=== PATIENT | male | born 1935 | race Caucasian/White ===

== ENCOUNTER 2020-09-07 13:08 | Outpatient (RCR) | payer MEDICARE, SELFPAY | END 2020-09-07 23:59 | LOC: IMMUN 13:08 | PROVIDERS: Visit Provider Family Medicine | DX: Z23 Encounter for immunization (principal) | CPT/HCPCS: 0011A; 0012A; 91301 ==

== ENCOUNTER → 2020-10-17 16:09 | Outpatient (CLI) | payer MEDICARE, SELFPAY ==
[2020-10-17 17:59] LABS: Absolute Lymphocyte Count 1.53 X10^3/uL (0.83-4.51); Absolute Neutrophil Count 5.7 X10^3/uL (2.0-7.7); Basophil# 0.08 X10^3/uL; Basophil% 0.9 % (0-1); Eosinophil# 0.61 X10^3/uL; Eosinophils% 6.9 % (0-5); Hematocrit 41.6 % (40-54); Hemoglobin 13.1 g/dL (13.0-16.5); Lymphocyte # 1.53 X10^3/ul (4.0); Lymphocyte % 17.3 % (19-41); Mean Corp Hgb Conc 31.5 g/dL (32-36); Mean Corpuscular Hgb 29.4 pg (27.0-32.0); Mean Corpuscular Volume 93.5 fL (80-94); Mean Platelet Vol. 11.1 fl (6.2-12.0); Monocyte# 0.87 X10^3/uL; Monocyte% 9.8 % (0-10); NRBC Flagged by Analyzer 0 % (0-5); Neutrophil # 5.72 X10^3/uL (2.7-7.7); Neutrophil % 64.6 % (47-70); Platelet Count 184 K/mm3 (150-450); RBC Distribution Width CV 13.9 % (11.6-14.6); RBC Distribution Width SD 47.3 fl (35.1-43.9); Red Blood Count 4.45 M/mm3 (4.6-6.2); White Blood Count 8.9 K/mm3 (4.4-11.0)
[2020-10-17 18:21] LABS: Erythrocyte Sedimentation Rate 9 mm/hr (0-20)
[2020-10-17 18:30] LABS: Hemoglobin A1c 7.3 % (3.8-5.6)
[2020-10-17 18:40] LABS: Vitamin D,25 Hydroxy 39.7 ng/mL
[2020-10-17 19:02] LABS: CRP < 2.90 mg/L (0.0-3.0); Cholesterol 160 mg/dL (200); Rheumatoid Factor < 10.0 IU/mL (<15); Thyroid Stim Hormone (TSH) 0.15 uIU/mL (0.358-3.74)
[2020-10-18 13:59] LABS: High Density Lipoprotein 53 mg/dL
[2020-10-19 16:37] LABS: ANTINUCLEAR ANTIBODIES DIRECT Negative (Negative)
[2020-10-20 03:07] LABS: LDL, Direct 120295 87 mg/dL (0-99)
[2020-10-20 13:01] LABS: CCP IgG Antibodies 5 units (0-19)
== END ==
PROVIDERS: PCP Family Medicine; Referring Provider Family Medicine; Visit Provider Family Medicine
DX: M06.4 Inflammatory polyarthropathy (principal); I70.0 Atherosclerosis of aorta; I10 Essential (primary) hypertension; E11.9 Type 2 diabetes mellitus without complications
CPT/HCPCS: 36415; 82306; 82465; 83036; 83718; 83721; 84443; 85025; 85652; 86038; 86140; 86200; 86431

== ENCOUNTER 2020-11-27 07:26 | Outpatient (RCR) | payer MEDICARE, SELFPAY ==
--- NOTE | 2020-11-29 08:00 | HP.OTEVAL_ITS ---
Patient's Visit Information BELLA JOHNSON is a 85 year old M, referred to Occupational Therapy by Dr. Hector May MD, with a diagnosis of OA bilateral hands. 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 pt states his hands do not hurt and he can perform his ADLS with compensation- pt would like to know if there is something he can do with his hands to prevent further deformities. - ADLs Comments: pt pt and pts dtr- pt is able to mtg his own personal care- with his deformities. - ROM ROM Comments: pt demo with right multip. joint deformities of MCP of right and left hands. pt states his right hand has had the deformities for over 15 years and the left about 5 or so. pt demo with subluxation of proximal phalanxs under metacarpal heads of right Digits 2-5. pts extensor tendons are subluxing ulnarly off MCPJ. left hand demo with extensor tendon ulnarly off MCP of digits 3-5. The deformities limits the pts ability to extend digits at MCP levels- - Strength Strength Comments: not tested - Rehabilitation General Assessment: pt demo with subluxation of proximal phalanxs under metacarpal heads of right Digits 2-5. pts extensor tendons are subluxing ulnarly off MCPJ. left hand demo with extensor tendon ulnarly off MCP of digits 3-5. The deformities limits the pts ability to extend digits at MCP levels-. Therapist discussed with pts possible use of orthosis to prevent MCP flex to avoid extensor tensons from rolloing ulnarlly off MCPJ. 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 so after further discussions pt opted to decline use of orthosos- theapist did ed. pts dtr on use of modalities and soft tissue massage to decrease flexor tendon tightness- therapist ed, pt at rest to limit fisting and to place left hand flat on pillow- therapist discussed with pt and pts dtr need of ad. eq. both declined as pt is ind. with ADLs. pt agree to this POC. Rehabilitation Potential: Poor - Anticipated Interventions Joint Protection/Energy Conservation, Education re assistive Equipment, Education re Diagnosis, Caregiver Training, Home Program - Visit Plan General Plan: PT ed, on dx and deformities - pt ed on use of orthosis but declinded at this would limit functional grasp of his hands. Therapist ed. pt with ad. devices for self-care- pt reports no need at this time. therapist ed. pt and pts dtr to perform soft tissue massage and continue with skin checks to ensure no skin break down- pts dtr and pt demo understanding and agree to HEP TEXT: Thank you for the opportunity to evaluate your patient. For Medicare and Medicare HMO plans, please review the plan of care and approve it. It will need to be FAXED BACK to us at [phone] for Medicare purposes. Please let me know if there are questions or concerns regarding this plan of care. Physician Signature: Date:
== END 2020-11-27 19:00 | disposition home or self-care (01) ==
LOC: OT 07:26
PROVIDERS: PCP Family Medicine; Referring Provider Family Medicine; Visit Provider Family Medicine
DX: M19.049 Primary osteoarthritis, unspecified hand (principal)
CPT/HCPCS: 97166

== ENCOUNTER → 2021-01-17 11:17 | Outpatient (CLI) | payer MEDICARE, SELFPAY ==
[2021-01-17 12:09] LABS: Absolute Neutrophil Count 6.2 X10^3/uL (2.0-7.7); Basophil# 0.07 X10^3/uL; Basophil% 0.8 % (0-1); Eosinophil# 0.52 X10^3/uL; Eosinophils% 5.6 % (0-5); Hematocrit 44.1 % (40-54); Hemoglobin 14.3 g/dL (13.0-16.5); Lymphocyte % 17.2 % (19-41); Mean Corp Hgb Conc 32.4 g/dL (32-36); Mean Corpuscular Hgb 30.3 pg (27.0-32.0); Mean Corpuscular Volume 93.4 fL (80-94); Mean Platelet Vol. 10.8 fl (6.2-12.0); Monocyte# 0.83 X10^3/uL; Monocyte% 8.9 % (0-10); NRBC Flagged by Analyzer 0 % (0-5); Neutrophil # 6.22 X10^3/uL (2.7-7.7); Neutrophil % 67.1 % (47-70); Platelet Count 248 K/mm3 (150-450); RBC Distribution Width CV 13.1 % (11.6-14.6); RBC Distribution Width SD 45.3 fl (35.1-43.9); Red Blood Count 4.72 M/mm3 (4.6-6.2); White Blood Count 9.3 K/mm3 (4.4-11.0)
[2021-01-17 12:49] LABS: Hemoglobin A1c 7.6 % (3.8-5.6)
[2021-01-17 13:09] LABS: AST(SGOT) 10 U/L (15-37); Alanine Aminotransfer ALT/SGPT 17 U/L (16-61); Alkaline Phosphatase 134 U/L (45-117); Anion Gap 9 (5-15); BUN 26 mg/dL (7-18); BUN/Creat Ratio 13.7 RATIO (10-20); Calcium,Total 9.2 mg/dL (8.5-10.1); Chloride 104 mmol/L (98-107); EST Glomerular Filtration Rate 36 mL/min (>60); Est Glom Filt Rate - Afr Amer 44 mL/min (>60); Globulin 3.9 g/dL (2.2-4.2); Glucose 164 mg/dL (74-106); Potassium 5.4 mmol/L (3.5-5.1); Protein, Total 7.9 g/dL (6.4-8.2); Sodium Level 137 mmol/L (136-145); Thyroid Stim Hormone (TSH) 0.46 uIU/mL (0.358-3.74)
== END ==
PROVIDERS: PCP Family Medicine; Referring Provider Family Medicine; Visit Provider Family Medicine
DX: E11.9 Type 2 diabetes mellitus without complications (principal); I10 Essential (primary) hypertension
CPT/HCPCS: 36415; 80053; 83036; 84443; 85025

== ENCOUNTER 2021-10-17 16:05 | Outpatient (CLI) | payer MEDICARE, SELFPAY ==
[2021-10-17 17:55] LABS: Absolute Lymphocyte Count 1.75 X10^3/uL (0.83-4.51); Absolute Neutrophil Count 6.9 X10^3/uL (2.0-7.7); Basophil# 0.09 X10^3/uL; Basophil% 0.9 % (0-1); Eosinophil# 0.62 X10^3/uL; Eosinophils% 5.9 % (0-5); Hematocrit 39.6 % (40-54); Hemoglobin 12.6 g/dL (13.0-16.5); Lymphocyte # 1.75 X10^3/ul (0.83-4.51); Lymphocyte % 16.7 % (19-41); Mean Corp Hgb Conc 31.8 g/dL (32-36); Mean Corpuscular Hgb 29.9 pg (27.0-32.0); Mean Corpuscular Volume 93.8 fL (80-94); Mean Platelet Vol. 10.5 fl (6.2-12.0); Monocyte# 1.09 X10^3/uL; Monocyte% 10.4 % (0-10); NRBC Flagged by Analyzer 0 % (0-5); Neutrophil # 6.85 X10^3/uL (2.7-7.7); Neutrophil % 65.4 % (47-70); Platelet Count 243 K/mm3 (150-450); RBC Distribution Width CV 13.7 % (11.6-14.6); RBC Distribution Width SD 46.7 fl (35.1-43.9); Red Blood Count 4.22 M/mm3 (4.6-6.2); White Blood Count 10.5 K/mm3 (4.4-11.0)
[2021-10-17 18:43] LABS: ALB/GLOB Ratio 1.1 RATIO (0.9-2.4); AST(SGOT) 15 U/L (15-37); Alanine Aminotransfer ALT/SGPT 15 U/L (16-61); Albumin, Serum 3.8 g/dL (3.2-5.0); Alkaline Phosphatase 93 U/L (45-117); Anion Gap 7 (5-15); BUN 39 mg/dL (7-18); BUN/Creat Ratio 18.1 RATIO (10-20); Calcium,Total 9.2 mg/dL (8.5-10.1); Chloride 113 mmol/L (98-107); Creatinine, Serum 2.15 mg/dL (0.70-1.30); EST Glomerular Filtration Rate 31 mL/min (>60); Est Glom Filt Rate - Afr Amer 38 mL/min (>60); Globulin 3.6 g/dL (2.2-4.2); Glucose 163 mg/dL (74-106); Potassium 6.3 mmol/L (3.5-5.1); Protein, Total 7.4 g/dL (6.4-8.2); Sodium Level 137 mmol/L (136-145)
== END 2021-10-17 23:59 | disposition home or self-care (01) ==
LOC: MFPLAB 16:08
PROVIDERS: PCP Family Medicine; Referring Provider Family Medicine; Visit Provider Family Medicine
DX: E11.22 Type 2 diabetes mellitus with diabetic chronic kidney disease (principal); I70.0 Atherosclerosis of aorta; N18.30 Chronic kidney disease, stage 3 unspecified
CPT/HCPCS: 36415; 80053; 85025

== ENCOUNTER 2021-10-18 11:31 | Outpatient (CLI) | payer MEDICARE, SELFPAY | END 2021-10-18 23:59 | disposition home or self-care (01) | LOC: LABSPEC 11:34 | PROVIDERS: PCP Family Medicine; Referring Provider Family Medicine; Visit Provider Family Medicine | DX: R35.0 Frequency of micturition (principal) | CPT/HCPCS: 87086 ==

== ENCOUNTER 2021-10-24 10:38 | Outpatient (CLI) | payer MEDICARE, SELFPAY ==
[2021-10-24 13:08] LABS: Albumin, Serum 3.5 g/dL (3.2-5.0); BUN 39 mg/dL (7-18); BUN/Creat Ratio 19.7 RATIO (10-20); Calcium,Total 9.4 mg/dL (8.5-10.1); Chloride 110 mmol/L (98-107); Creatinine, Serum 1.98 mg/dL (0.70-1.30); EST Glomerular Filtration Rate 34 mL/min (>60); Est Glom Filt Rate - Afr Amer 41 mL/min (>60); Glucose 135 mg/dL (74-106); Magnesium 2.3 mg/dL (1.6-2.6); Phosphorus 3.9 mg/dL (2.5-4.9); Potassium 5.5 mmol/L (3.5-5.1); Sodium Level 136 mmol/L (136-145)
[2021-10-24 13:09] LABS: PTHIN 37.2 pg/mL (18.4-80.1)
[2021-10-24 13:13] LABS: Vitamin D,25 Hydroxy 20.8 ng/mL
[2021-10-26 22:43] LABS: PSA, Total 1.5 ng/mL (0.0-4.0)
== END 2021-10-24 23:59 | disposition home or self-care (01) ==
LOC: MFPLAB 10:44
PROVIDERS: PCP Family Medicine; Referring Provider Family Medicine; Visit Provider Family Medicine
DX: N40.0 Benign prostatic hyperplasia without lower urinary tract symptoms (principal); N18.4 Chronic kidney disease, stage 4 (severe); E87.5 Hyperkalemia; N13.9 Obstructive and reflux uropathy, unspecified
CPT/HCPCS: 36415; 80069; 82306; 83735; 83970; 84153

== ENCOUNTER → 2022-04-04 | Outpatient (CLI) | payer MEDICARE, SELFPAY ==
[2022-04-04 15:20] LABS: ALB/GLOB Ratio 0.6 RATIO (0.9-2.4); AST(SGOT) 17 U/L (15-37); Alanine Aminotransfer ALT/SGPT 20 U/L (16-61); Alkaline Phosphatase 74 U/L (45-117); Anion Gap 6 (5-15); BUN 47 mg/dL (7-18); BUN/Creat Ratio 21.6 RATIO (10-20); Calcium,Total 9.6 mg/dL (8.5-10.1); Chloride 112 mmol/L (98-107); Creatinine, Serum 2.18 mg/dL (0.70-1.30); EST Glomerular Filtration Rate 31 mL/min (>60); Est Glom Filt Rate - Afr Amer 37 mL/min (>60); Globulin 5.2 g/dL (2.2-4.2); Glucose 141 mg/dL (74-106); Potassium 5.2 mmol/L (3.5-5.1); Protein, Total 8.2 g/dL (6.4-8.2); Sodium Level 140 mmol/L (136-145)
== END | disposition home or self-care (01) ==
PROVIDERS: PCP Family Medicine; Referring Provider Family Medicine; Visit Provider Family Medicine
DX: E11.22 Type 2 diabetes mellitus with diabetic chronic kidney disease (principal); N18.4 Chronic kidney disease, stage 4 (severe)
CPT/HCPCS: 36415; 80053; 83036